=== PATIENT | female | born 1930 | race African-American/Black ===

== ENCOUNTER 2018-08-24 18:55 | Emergency (ER) | payer MEDICAID, MEDICARE ==
[~2018-08-24] VITALS: Ht 165.1 cm; Wt 75.0 kg
[~2018-08-24 18:55] MED LIST: ACET-2178 PO; AMLO10TA80 PO; BENA40TA66 PO; BLOO-1686 MC; CLAR10 PO; HYDR-2510 PO; METF750T PO; PIOG30TA10 PO; ROSU20TA2 PO; [UNRECOGNIZED DRUG - CODE] PO
[2018-08-24] MEDS ORDERED: CEFTRIAXONE 1 G PREMIX 50 ML IV ONE (20:00)
[2018-08-24 20:25] LABS: BASOPHILS % 0.2 % (0.0-2.0); EOSINOPHILS % 3.6 % (0.0-5.0); HEMATOCRIT. 32.4 % (36.0-48.0); HEMOGLOBIN. 10.7 g/dL (12.0-16.0); LYMPHOCYTES % 26.2 % (20.0-50.0); MEAN CORPUSCULAR HEMOGLOBIN 28.2 pg (28.0-32.0); MEAN CORPUSCULAR VOLUME 85.2 fL (81.0-99.0); MEAN PLATELET VOLUME 8.5 fl (7.4-10.4); MONOCYTES % 7.8 % (2.0-8.0); NEUTROPHILS % 62.2 % (40.0-76.0); PLATELET 234 x1000/uL (130-400); RED BLOOD CELL COUNT 3.81 mill/uL (4.2-5.4); RED CELL DISTRIBUTION WIDTH 14.5 % (11.6-14.6)
[2018-08-24 20:26] LABS: CHLORIDE 106 mEq/L (98-107)
[2018-08-24] MEDS ORDERED: SODIUM CHLORIDE 0.9% 1,000 ML IV ONE (20:56)
[2018-08-25 01:47] VITALS: BP 128/51
== END 2018-08-25 01:54 | disposition short-term general hospital (02) ==
LOC: ER 19:35
DX: S51.852A Open bite of left forearm, initial encounter (principal); N17.9 Acute kidney failure, unspecified; D64.9 Anemia, unspecified; W54.0XXA Bitten by dog, initial encounter; Y93.89 Activity, other specified; Y92.89 Other specified places as the place of occurrence of the external cause
CPT/HCPCS: 36415; 73090; 80053; 82962; 85025; 85610; 96365; 99285; C1893; J0696; J7030; Z7610

== ENCOUNTER 2021-05-09 14:12 | Inpatient (IN) | payer MEDICARE ==
[~2021-05-09] VITALS: Ht 157.5 cm; Wt 93.4 kg
[~2021-05-09 14:12] MED LIST changes: -ACET-2178 PO; -HYDR-2510 PO; +HYDR50TA PO; +TOPUD PO
[2021-05-09 18:15] LABS: HEMATOCRIT. 31.2 % (36.0-48.0); HEMOGLOBIN. 9.9 g/dL (12.0-16.0); MEAN CORPUSCULAR HEMOGLOBIN 25.3 pg (28.0-32.0); MEAN CORPUSCULAR VOLUME 79.4 fL (81.0-99.0); MEAN PLATELET VOLUME 8.5 fl (7.4-10.4); PLATELET 242 x1000/uL (130-400); RED BLOOD CELL COUNT 3.93 mill/uL (4.2-5.4); RED CELL DISTRIBUTION WIDTH 19.1 % (11.6-14.6)
[2021-05-09] MEDS ORDERED: VANCOMYCIN 1G PREMIX 200 ML IV SCH (18:15)
[2021-05-09 18:22] LABS: CHLORIDE 111 mEq/L (98-107)
[2021-05-09 18:28] LABS: CLARITY URINE CLEAR (CLEAR); COLOR URINE YELLOW (YELLOW); KETONES URINE NEGATIVE (NEGATIVE); LEUKOCYTE ESTERASE URINE 1+ (NEGATIVE); NITRITE URINE NEGATIVE (NEGATIVE); OCCULT BLOOD URINE NEGATIVE (NEGATIVE); PROTEIN URINE NEGATIVE (NEGATIVE); SPECIFIC GRAVITY URINE 1.012 (1.005-1.030); UROBILINOGEN URINE 0.2 E.U./dL (0.2-1.0)
[2021-05-09 19:07] LABS: PLATELET ESTIMATE NORMAL
[2021-05-10 11:14] VITALS: BP 145/66
[2021-05-10] MEDS ORDERED: DEXTROSE 50% WATER 50ML SYRINGE IV PRN (12:15)
[2021-05-10] MEDS ORDERED: ACETAMINOPHEN 650MG/20.3ML UDC PO PRN (12:15)
[2021-05-10] MEDS: BLOOD SUGAR DIAGNOSTIC STRIP TEST SCH ×3 (12:20→20:45)
[2021-05-10] MEDS ORDERED: NON FORMULARY PATIENT HOME MED XX SCH (12:30)
[2021-05-10] MEDS: INSULIN LISPRO 100 UNITS/ML SUBCUT SCH ×3 (12:50→20:45)
[2021-05-10] MEDS ORDERED: BENAZEPRIL 10MG TABLET PO SCH (13:00)
[2021-05-10] MEDS: AMLODIPINE 10MG TABLET PO SCH (13:00)
[2021-05-10] MEDS ORDERED: LEVOTHYROXINE SODIUM 200MCG TABLET PO SCH (13:00)
[2021-05-10] MEDS ORDERED: HALOPERIDOL LACTATE 5MG/ML VIAL IM SCH (13:30)
[2021-05-10] MEDS ORDERED: PIPERACILLIN/TAZOBACTAM 3.375 G in DEXTROSE 5% WATER 50 ML IV SCH (14:00)
[2021-05-10] MEDS ORDERED: VANCOMYCIN 1G PREMIX 200 ML IV SCH (15:00)
[2021-05-10] MEDS: SODIUM CHLORIDE 0.9% 1,000 ML IV SCH ×2 (16:03→22:49)
[2021-05-10] MEDS: PANTOPRAZOLE SODIUM 40 MG/VIAL IV SCH (16:45)
[2021-05-10 16:47] LABS: HEMATOCRIT. 30.8 % (36.0-48.0); HEMOGLOBIN. 10.1 g/dL (12.0-16.0); MEAN CORPUSCULAR HEMOGLOBIN 25.5 pg (28.0-32.0); MEAN CORPUSCULAR VOLUME 77.4 fL (81.0-99.0); PLATELET 245 x1000/uL (130-400); RED BLOOD CELL COUNT 3.98 mill/uL (4.2-5.4); RED CELL DISTRIBUTION WIDTH 19.3 % (11.6-14.6)
[2021-05-10 16:50] LABS: INR 1.1; PROTHROMBIN TIME 11.3 sec (9.6-11.0)
[2021-05-10 17:58] LABS: HEMATOCRIT 29.8 % (36.0-48.0); HEMOGLOBIN 9.8 g/dL (12.0-16.0)
[2021-05-10 20:00] VITALS: BP 149/72
[2021-05-10] MEDS: ATORVASTATIN CALCIUM 40MG TABLET PO SCH (21:00)
[2021-05-10] MEDS: PIPERACILLIN/TAZOBACTAM 3.375 G in DEXTROSE 5% WATER 50 ML IV SCH (22:48)
[2021-05-10 23:01] LABS: PLATELET ESTIMATE NORMAL
[2021-05-11] VITALS: BP 134/81
[2021-05-11 00:54] LABS: HEMATOCRIT 30.6 % (36.0-48.0); HEMOGLOBIN 9.9 g/dL (12.0-16.0)
[2021-05-11 04:00] VITALS: BP 173/82
[2021-05-11] MEDS: LEVOTHYROXINE SODIUM 200MCG TABLET PO SCH (06:50)
[2021-05-11] MEDS: INSULIN LISPRO 100 UNITS/ML SUBCUT SCH ×4 (06:50→20:36)
[2021-05-11] MEDS: BLOOD SUGAR DIAGNOSTIC STRIP TEST SCH ×4 (06:50→20:35)
[2021-05-11 08:00] VITALS: BP 135/60
[2021-05-11] MEDS: AMLODIPINE 10MG TABLET PO SCH (08:00)
[2021-05-11] MEDS: PIPERACILLIN/TAZOBACTAM 3.375 G in DEXTROSE 5% WATER 50 ML IV SCH ×2 (08:00→20:26)
[2021-05-11] MEDS: PANTOPRAZOLE SODIUM 40 MG/VIAL IV SCH (08:00)
[2021-05-11] MEDS: SODIUM CHLORIDE 0.9% 1,000 ML IV SCH ×2 (08:40→18:27)
[2021-05-11] MEDS ORDERED: ENOXAPARIN 30MG/0.3ML SYR SUBCUT SCH (09:00)
[2021-05-11] MEDS ORDERED: ENOXAPARIN 40MG/0.4ML SYR SUBCUT SCH (09:00)
[2021-05-11 10:23] LABS: HEMATOCRIT 31.9 % (36.0-48.0); HEMOGLOBIN 10.3 g/dL (12.0-16.0)
[2021-05-11 12:00] VITALS: BP 141/58
[2021-05-11 16:00] VITALS: BP 148/54
[2021-05-11 20:00] VITALS: BP 140/52
[2021-05-11] MEDS: ATORVASTATIN CALCIUM 40MG TABLET PO SCH (20:27)
[2021-05-11] MEDS ORDERED: METRONIDAZOLE 500MG TABLET PO NR (21:00)
[2021-05-12] VITALS: BP 135/80
[2021-05-12 04:00] VITALS: BP 135/58
[2021-05-12] MEDS: SODIUM CHLORIDE 0.9% 1,000 ML IV SCH ×2 (04:34→17:33)
[2021-05-12] MEDS: LEVOTHYROXINE SODIUM 200MCG TABLET PO SCH (06:05)
[2021-05-12] MEDS: INSULIN LISPRO 100 UNITS/ML SUBCUT SCH ×4 (06:35→20:31)
[2021-05-12] MEDS: BLOOD SUGAR DIAGNOSTIC STRIP TEST SCH ×4 (06:35→20:31)
[2021-05-12 08:00] VITALS: BP 151/89
[2021-05-12] MEDS: PANTOPRAZOLE SODIUM 40 MG/VIAL IV SCH (09:14)
[2021-05-12] MEDS: AMLODIPINE 10MG TABLET PO SCH (09:15)
[2021-05-12] MEDS: PIPERACILLIN/TAZOBACTAM 3.375 G in DEXTROSE 5% WATER 50 ML IV SCH ×2 (09:15→21:50)
[2021-05-12 12:00] VITALS: BP 136/43
[2021-05-12 16:00] VITALS: BP 121/59
[2021-05-12] MEDS ORDERED: VANCOMYCIN 1GM PMX (XELLIA) 200 ML IV SCH (16:00)
[2021-05-12 20:00] VITALS: BP 133/59
[2021-05-12] MEDS: ATORVASTATIN CALCIUM 40MG TABLET PO SCH (21:50)
[2021-05-12] MEDS: ENOXAPARIN 40MG/0.4ML SYR SUBCUT SCH (21:51)
[2021-05-13] VITALS: BP 148/57
[2021-05-13] MEDS: SODIUM CHLORIDE 0.9% 1,000 ML IV SCH ×3 (02:42→20:59)
[2021-05-13 04:00] VITALS: BP 128/65
[2021-05-13] MEDS: LEVOTHYROXINE SODIUM 200MCG TABLET PO SCH (06:34)
[2021-05-13] MEDS: BLOOD SUGAR DIAGNOSTIC STRIP TEST SCH ×4 (06:34→20:58)
[2021-05-13] MEDS: INSULIN LISPRO 100 UNITS/ML SUBCUT SCH ×4 (06:39→21:05)
[2021-05-13 08:00] VITALS: BP 140/58
[2021-05-13] MEDS: PIPERACILLIN/TAZOBACTAM 3.375 G in DEXTROSE 5% WATER 50 ML IV SCH ×3 (08:19→23:21)
[2021-05-13] MEDS: AMLODIPINE 10MG TABLET PO SCH (08:19)
[2021-05-13] MEDS: PANTOPRAZOLE SODIUM 40 MG/VIAL IV SCH (08:19)
[2021-05-13] MEDS: ZINC SULFATE 220 MG ( 50 ) CAPSULE PO SCH (08:19)
[2021-05-13] MEDS: ASCORBIC ACID 500 MG TABLET PO SCH (08:19)
[2021-05-13] MEDS: ENOXAPARIN 40MG/0.4ML SYR SUBCUT SCH (08:20)
[2021-05-13 12:00] VITALS: BP 124/64
[2021-05-13 16:00] VITALS: BP 128/64
[2021-05-13] MEDS ORDERED: HYDROCODONE/ACETAMINOPHEN 5/325MG TABLET PO PRN (16:00)
[2021-05-13] MEDS ORDERED: AMOX1TAB15 MT (16:04)
[2021-05-13] MEDS ORDERED: METR500T MT (16:04)
[2021-05-13 20:00] VITALS: BP 102/72
[2021-05-13] MEDS: ATORVASTATIN CALCIUM 40MG TABLET PO SCH (20:58)
[2021-05-13] MEDS: METRONIDAZOLE 500MG TABLET PO SCH (20:58)
[2021-05-14] VITALS: BP 131/56
[2021-05-14 04:00] VITALS: BP 147/55
[2021-05-14] MEDS: PIPERACILLIN/TAZOBACTAM 3.375 G in DEXTROSE 5% WATER 50 ML IV SCH ×3 (06:38→21:55)
[2021-05-14] MEDS: LEVOTHYROXINE SODIUM 200MCG TABLET PO SCH (06:45)
[2021-05-14] MEDS: BLOOD SUGAR DIAGNOSTIC STRIP TEST SCH ×4 (06:45→21:55)
[2021-05-14] MEDS: SODIUM CHLORIDE 0.9% 1,000 ML IV SCH (06:46)
[2021-05-14] MEDS: INSULIN LISPRO 100 UNITS/ML SUBCUT SCH ×4 (06:46→21:56)
[2021-05-14 07:13] LABS: HEMATOCRIT. 31.3 % (36.0-48.0); HEMOGLOBIN. 10.3 g/dL (12.0-16.0); MEAN CORPUSCULAR HEMOGLOBIN 25.4 pg (28.0-32.0); MEAN CORPUSCULAR VOLUME 77.5 fL (81.0-99.0); MEAN PLATELET VOLUME 8.2 fl (7.4-10.4); PLATELET 261 x1000/uL (130-400); RED BLOOD CELL COUNT 4.04 mill/uL (4.2-5.4); RED CELL DISTRIBUTION WIDTH 19.9 % (11.6-14.6)
[2021-05-14 08:00] VITALS: BP 121/65
[2021-05-14] MEDS: PANTOPRAZOLE SODIUM 40 MG/VIAL IV SCH (09:45)
[2021-05-14] MEDS: ENOXAPARIN 40MG/0.4ML SYR SUBCUT SCH (09:46)
[2021-05-14] MEDS: METRONIDAZOLE 500MG TABLET PO SCH ×2 (09:46→21:55)
[2021-05-14] MEDS: ASCORBIC ACID 500 MG TABLET PO SCH (09:46)
[2021-05-14] MEDS: ZINC SULFATE 220 MG ( 50 ) CAPSULE PO SCH (09:46)
[2021-05-14] MEDS: AMLODIPINE 10MG TABLET PO SCH (09:46)
[2021-05-14 12:00] VITALS: BP 144/66
[2021-05-14 12:22] LABS: PLATELET ESTIMATE NORMAL
[2021-05-14 16:00] VITALS: BP 136/68
[2021-05-14 20:00] VITALS: BP 122/65
[2021-05-14] MEDS: ATORVASTATIN CALCIUM 40MG TABLET PO SCH (21:55)
[2021-05-15] VITALS: BP 141/57
[2021-05-15 04:00] VITALS: BP 136/64
[2021-05-15] MEDS: PIPERACILLIN/TAZOBACTAM 3.375 G in DEXTROSE 5% WATER 50 ML IV SCH ×2 (05:53→14:06)
[2021-05-15] MEDS: INSULIN LISPRO 100 UNITS/ML SUBCUT SCH ×3 (06:11→17:40)
[2021-05-15] MEDS: LEVOTHYROXINE SODIUM 200MCG TABLET PO SCH (06:11)
[2021-05-15] MEDS: BLOOD SUGAR DIAGNOSTIC STRIP TEST SCH ×3 (06:11→18:03)
[2021-05-15 07:19] LABS: HEMATOCRIT. 30.5 % (36.0-48.0); MEAN CORPUSCULAR HEMOGLOBIN 25.3 pg (28.0-32.0); MEAN CORPUSCULAR VOLUME 76.7 fL (81.0-99.0); MEAN PLATELET VOLUME 7.7 fl (7.4-10.4); PLATELET 227 x1000/uL (130-400); RED BLOOD CELL COUNT 3.97 mill/uL (4.2-5.4); RED CELL DISTRIBUTION WIDTH 19.6 % (11.6-14.6)
[2021-05-15 08:04] VITALS: BP 108/54
[2021-05-15] MEDS: PANTOPRAZOLE SODIUM 40 MG/VIAL IV SCH (08:36)
[2021-05-15] MEDS: ZINC SULFATE 220 MG ( 50 ) CAPSULE PO SCH (08:37)
[2021-05-15] MEDS: METRONIDAZOLE 500MG TABLET PO SCH (08:37)
[2021-05-15] MEDS: ENOXAPARIN 40MG/0.4ML SYR SUBCUT SCH (08:37)
[2021-05-15] MEDS: AMLODIPINE 10MG TABLET PO SCH (08:37)
[2021-05-15] MEDS: ASCORBIC ACID 500 MG TABLET PO SCH (08:38)
[2021-05-15 11:11] LABS: PLATELET ESTIMATE NORMAL
[2021-05-15 13:01] VITALS: BP 127/54
[2021-05-15 15:41] VITALS: BP 123/52
[2021-05-15 16:33] VITALS: BP 123/52
== END 2021-05-15 18:50 | DRG 602 ==
LOC: ER 14:12 → MICUSO 05-10 03:43 → 6EST 05-10 07:55 → 8WST 05-10 18:58
PROVIDERS: ADMIT Internal Medicine; ATTEND Internal Medicine
DX: L03.115 Cellulitis of right lower limb (principal); G93.41 Metabolic encephalopathy; E43 Unspecified severe protein-calorie malnutrition; N17.9 Acute kidney failure, unspecified; N39.0 Urinary tract infection, site not specified; R78.81 Bacteremia; E78.5 Hyperlipidemia, unspecified; E03.9 Hypothyroidism, unspecified; E11.9 Type 2 diabetes mellitus without complications; F03.90 Unspecified dementia, unspecified severity, without behavioral disturbance, psychotic disturbance, mood disturbance, and anxiety; A59.9 Trichomoniasis, unspecified; I10 Essential (primary) hypertension; Z20.822 Contact with and (suspected) exposure to COVID-19; E66.01 Morbid (severe) obesity due to excess calories; D64.9 Anemia, unspecified; I87.8 Other specified disorders of veins; R74.01 Elevation of levels of liver transaminase levels; Z79.84 Long term (current) use of oral hypoglycemic drugs; Z79.899 Other long term (current) drug therapy; Z79.1 Long term (current) use of non-steroidal anti-inflammatories (NSAID); Z68.37 Body mass index [BMI] 37.0-37.9, adult
CPT/HCPCS: 36415; 71045; 73700; 74176; 76700; 76856; 80048; 80053; 80076; 80202; 81003; 82962; 83036; 84145; 84550; 85014; 85018; 85025; 85651; 86038; 86850; 86900; 86920; 87070; 87076; 87077; 87186; 87426; 93005; 93306; 93971; 97162; 97166; 97535; 99285; C1893; C9113; J1630; J1650; J1815; J2543; J3370; J7030; J7060